=== PATIENT | male | born 1960 | race Caucasian/White ===

== ENCOUNTER → 2019-06-27 13:08 | Outpatient (CLI) | payer SELFPAY ==
--- NOTE | 2019-06-27 | DI.RAD.S_ITS ---
PROCEDURE: XR CHEST 2V INDICATIONS: CHEST PAIN TECHNIQUE: 2 views of the chest were acquired. COMPARISON: [facility], , CHEST 2 VIEW, 03/30/2010, 15:58. FINDINGS: Surgical changes and devices: None. Lungs and pleura: Lungs are clear. No pleural effusions or pneumothorax. Mediastinum: Mediastinal contours are normal. Heart size is normal. Bones and chest wall: No suspicious bony abnormalities. Soft tissues appear unremarkable. IMPRESSION: No acute disease Dictated by: Emmanuel Tyler M.D. on 06/27/2019 at 14:47 Approved by: Emmanuel Tyler M.D. on 06/27/2019 at 14:48
[2019-06-27 13:59] LABS: Add Manual Diff / Slide Review NO; Basophils Absolute Auto 100 /uL (0-100); Basophils Percent Auto 0.7 % (0-2); Eosinophils Absolute Auto 600 /uL (0-450); Eosinophils Percent Auto 4.6 % (2-4); Hematocrit 45.3 % (41-53); Hemoglobin 15.4 g/dL (13.5-17.5); Lymphocytes Absolute Auto 4200 /uL (1100-4500); Lymphocytes Percent Auto 32.9 % (25-40); Mean Corpuscular Hemoglobin 30.1 PG (26-34); Mean Corpuscular Volume 88.5 fL (80-100); Monocytes Absolute Auto 1000 /uL (0-900); Monocytes Percent Auto 7.6 % (3-14); Neutrophils Absolute Auto 7000 /uL (1500-7000); Neutrophils Percent Auto 54.2 % (50-75); Platelet Count 210 X10^3/uL (150-400); Red Blood Cell Count 5.12 X10^6/uL (4.5-5.9); Red Cell Distribution Width 13.4 % (11.6-14.8); White Blood Cell Count 12.9 X10^3/uL (4.5-11.0)
[2019-06-27 14:28] LABS: Alanine Aminotransferase 37 IU/L (21-72); Albumin 4.6 g/dL (3.5-5.0); Albumin Globulin Ratio 1.5 (1.0-2.8); Alkaline Phosphatase 120 U/L (38-126); Aspartate Aminotransferase 37 IU/L (17-59); BUN Creatinine Ratio 21.1 (6-22); Bilirubin Total 0.8 mg/dL (0.2-1.3); Blood Urea Nitrogen 19 mg/dL (9-20); Calcium 9.8 mg/dL (8.4-10.2); Carbon Dioxide 25 mmol/L (22-32); Chloride 103 mmol/L (98-107); Creatine Kinase 153 U/L (55-170); Estimated Glomerular Filt Rate > 60.0 mL/min (>60); Glucose 100 mg/dL (80-110); HEMOLYSIS < 15 (0-50); Potassium 4.3 mmol/L (3.4-5.1); Sodium 138 mmol/L (137-145); Total Protein 7.6 g/dL (6.3-8.2)
[2019-06-27 14:38] LABS: Troponin I < 0.012 ng/mL (0.01-0.034)
[2019-06-27 14:58] LABS: TSH w/ Reflex to FT4 2.47 uIU/mL (0.47-4.68)
== END ==
PROVIDERS: PCP Family Medicine; Visit Provider Family Medicine
DX: R07.89 Other chest pain (principal)
CPT/HCPCS: 36415; 71046; 80053; 82550; 84443; 84484; 85025

== ENCOUNTER 2022-10-10 22:29 | Emergency (ER) | payer SELFPAY ==
[2022-10-10 22:43] VITALS: BP 189/101; PULSE 62; RESP 16; TEMP 36.7; O2SAT 98; BMI 29.8
[2022-10-10] MEDS: SODIUM CHLORIDE 0.9% 1,000 ML 1000 ML IV (23:02)
[2022-10-10] MEDS: KETOROLAC 30 MG/ML VIAL 15 MG IV (23:02)
--- NOTE | 2022-10-10 23:15 | DI.CT.S_ITS ---
PROCEDURE: CT ABDOMEN PELVIS W CON INDICATIONS: R side pain, nausea, anorexia TECHNIQUE: After the administration of IV contrast, axial sections were acquired from the lung bases to the pubic symphysis. Coronal and sagittal reformats were performed. For radiation dose reduction, the following was used: automated exposure control, adjustment of mA and/or kV according to patient size. COMPARISON: None. FINDINGS: Image quality: Excellent. Lung bases: Unremarkable. Heart: Heart size is at the upper limits of normal. A small right pericardial cyst is noted measuring up to 4.2 x 1.8 cm. There is a small hiatal hernia. ABDOMEN: Liver: No mass lesion. Gallbladder: Within normal limits without calcified gallstones. Biliary ducts: No biliary ductal dilatation. Pancreas: Unremarkable. Spleen: Normal in size. Adrenal Glands: No adrenal nodules. Kidneys and Ureters: There is an obstructing 0.2 cm distal right ureteral stone with associated mild right hydroureteronephrosis. There is mild right perinephric and periureteral fat stranding as well as a delayed right nephrogram. There are 2 additional punctate nonobstructing right renal stones. No left hydronephrosis or discrete left renal stones. The 3 exophytic left renal cysts are demonstrated. In addition within the inferior pole of the left kidney, there is a small exophytic hyperdense cyst or renal mass measuring up to 1.4 cm on series 2, image 50. Stomach and Bowel: Stomach, small bowel loops, and colon are normal in caliber and wall thickness. The appendix is normal in appearance. Peritoneum: No abnormal intraperitoneal fluid. No free air. Ventral Wall: No hernia. Abdominal Nodes: No retroperitoneal or mesenteric adenopathy by size criteria. Vessels: Aorta and inferior vena cava are normal in size. PELVIS: Pelvic Organs: There is mild enlargement of the prostate. Bladder: The urinary bladder is partially distended. Pelvic Nodes: No enlarged lymph nodes. Miscellaneous: No inguinal hernias are seen. Bones: Visualized osseous structures demonstrate no suspicious focal lesions. IMPRESSION: 1. Obstructing distal right ureteral stone with associated mild right hydroureteronephrosis. 2. Additional punctate nonobstructing right renal stones. 3. Small exophytic left renal mass or hemorrhagic cyst. Recommend initial further evaluation with nonemergent renal ultrasound. Dictated by: Alex Martini M.D. on 10/11/2022 at 0:25 Approved by: Alex Martini M.D. on 10/11/2022 at 0:32
--- NOTE | 2022-10-10 23:15 | ED_ITS ---
HPI - Abdominal Pain General Chief Complaint: Abdominal Pain Stated Complaint: rt sided pain Time Seen by Provider: 10/10/22 22:35 Mode of arrival: Family Vehicle History of Present Illness HPI narrative: 62-year-old male nonsmoker without any significant medical history presents with a chief complaint of right flank pain that started earlier today. He states it came on rather suddenly and seems to come and go without any obvious provocation or palliation. He denies any radiation of pain. He is nauseated but denies any vomiting. He denies any fever or chills. He has some nausea but denies any vomiting. Denies dysuria, frequency or urgency. He has no change in bowel habits such as constipation or diarrhea. Related Data Previous Rx's Medication Instructions Recorded hydrocodone 5 mg-acetaminophen 325 1 tab PO Q4-6H PRN pain #10 tabs 10/11/22 mg tablet ketorolac 10 mg tablet 10 mg PO Q6H PRN pain #14 tabs 10/11/22 ondansetron 4 mg disintegrating 4 mg PO TID-QID PRN nausea and 10/11/22 tablet vomiting #10 tabs tamsulosin 0.4 mg capsule (Flomax) 0.4 mg PO DAILY #30 caps 10/11/22 Allergies Allergy/AdvReac Type Severity Reaction Status Date / Time No Known Drug Allergies Allergy Verified 10/10/22 22:45 Review of Systems Review of Systems Narrative: GENERAL: Denies chills, fatigue, malaise, fever, sweats. HEENT: Denies sinus pain, ear pain, sore throat, difficulty swallowing, dizziness. RESPIRATORY: Denies dyspnea, cough, wheezing, hemoptysis, sputum. CARDIOVASCULAR: Denies chest pain, palpitations, orthopnea, edema, GASTROINTESTINAL: See HPI : see HPI MUSCULOSKELETAL: denies weakness, joint pain, or bony pain SKIN: Denies rash, skin lesions, or other NEUROLOGIC: Denies weakness, headache, numbness, change in speech, confusion, seizures, incoordination. PSYCHIATRIC: No concerning psychosocial issues. 12 point review of systems is negative except for those stated above Patient History Social History Smoking Status: Never smoker Smoking Status: Never smoker Substance Use Type: does not use Exam Narrative Exam Narrative: GENERAL: [62] year old patient appears stated age. Well-developed patient, in mild distress. HEAD: Atraumatic. Normocephalic. EYES: Pupils equal round and reactive. Extraocular motions intact. No scleral icterus. No injection or drainage. ENT: Nose without bleeding, purulent drainage. Throat without erythema, tonsillar hypertrophy or exudate. Airway patent. NECK: Trachea midline. Non tender CARDIOVASCULAR: Regular rate and rhythm without murmurs, gallops, or rubs. RESPIRATORY: Clear to auscultation. Breath sounds equal bilaterally. No wheezes, rales, or rhonchi. GASTROINTESTINAL: Abdomen soft, non-tender, nondistended. EXTREMITIES: No edema or joint tenderness. BACK: Nontender without deformity or crepitance. No flank tenderness. NEURO: AOx3. SKIN: No rash or erythema of visible areas Initial Vital Signs Initial Vital Signs: Vital Signs Temperature 98.0 F 10/10/22 22:43 Pulse Rate 62 10/10/22 22:43 Respiratory Rate 16 10/10/22 22:43 Blood Pressure 189/101 H 10/10/22 22:43 Pulse Oximetry 98 10/10/22 22:43 Oxygen Delivery Method 10/10/22 22:43 Course Orders Ordered: ED Orders 10/10/22 22:55 Complete Blood Count AUTO DIFF Stat Comprehensive Metabolic Panel Stat Lactate (Lactic Acid) Stat Lipase Stat 10/10/22 23:15 CT abdomen pelvis w con Stat Discontinued Medications Hydrocodone Bitart/Acetaminophen (Hydrocodone/Acet 5/325 Prepack) 1 bottle MISC SEEINSTR ONE Stop: 10/11/22 01:49 Last Admin: 10/11/22 01:54 Dose: 1 bottle Documented By: NIEVES Hydromorphone HCl (Hydromorphone 0.5 Mg Inj) 0.5 mg IV NOW ONE Stop: 10/11/22 01:49 Last Admin: 10/11/22 01:54 Dose: 0.5 mg Documented By: NIEVES Sodium Chloride (Normal Saline 0.9%) 1,000 mls @ 1,000 mls/hr IV BOLUS ONE Stop: 10/10/22 23:46 Last Infusion: 10/11/22 00:35 Dose: 0 mls/hr Documented By: Admin: 10/10/22 23:02 Dose: 1,000 mls/hr Documented By: NIEVES Ketorolac Tromethamine (Ketorolac 30 Mg/Ml Vial) 15 mg IV NOW ONE Stop: 10/10/22 22:48 Last Admin: 10/10/22 23:02 Dose: 15 mg Documented By: NIEVES Ondansetron HCl (Ondansetron 4 Mg Odt Prepack) 1 bottle MISC SEEINSTR ONE Stop: 10/11/22 01:49 Last Admin: 10/11/22 01:53 Dose: 1 bottle Documented By: NIEVES Tamsulosin HCl (Tamsulosin 0.4 Mg Capsule) 0.4 mg PO NOW ONE Stop: 10/11/22 01:49 Last Admin: 10/11/22 01:59 Dose: 0.4 mg Documented By: NIEVES Reevaluation(s) Reevaluation #1: Significant improvement after Toradol Reevaluation #2: patient reports pain starting to come back, Dilaudid ordered Time: 01:58 Vital Signs Vital signs: Vital Signs - 8 hr 10/10/22 22:43 10/11/22 01:55 Temperature 98.0 F Pulse Rate 62 61 Respiratory Rate 16 20 Blood Pressure 189/101 H 173/94 H Pulse Oximetry 98 99 Oxygen Delivery Method Room Air Room Air MDM - Abdominal Pain Lab Data Result diagrams: 10/10/22 22:55 10/10/22 22:55 Labs: Lab Results 10/10/22 10/10/22 10/10/22 Range/Units 22:55 22:55 22:55 WBC 16.7 H (4.5-11.0) X10^3/uL RBC 5.32 (4.5-5.9) X10^6/uL Hgb 16.0 (13.5-17.5) g/dL Hct 48.2 (41-53) % MCV 90.6 (80-100) fL MCH 30.1 (26-34) PG MCHC 33.2 (30-36) % RDW 13.5 (11.6-14.8) % Plt Count 229 (150-400) X10^3/uL Neut % (Auto) 60.2 (50-75) % Lymph % (Auto) 28.2 (25-40) % [place] % (Auto) 7.5 (3-14) % Eos % (Auto) 3.3 (2-4) % Baso % (Auto) 0.8 (0-2) % Neut # (Auto) 62624 H (6933-5846) /uL Lymph # (Auto) 4700 H (8887-5929) /uL [place] # (Auto) 1200 H (0-900) /uL Eos # (Auto) 500 H (0-450) /uL Baso # (Auto) 100 (0-100) /uL Sodium 141 (137-145) mmol/L Potassium 4.1 (3.4-5.1) mmol/L Chloride 103 (98-107) mmol/L Carbon Dioxide 30 (22-32) mmol/L BUN 18 (9-20) mg/dL Creatinine 1.25 (0.66-1.25) mg/dL Estimated GFR > 60 (>60) mL/min BUN/Creatinine Ratio 14.4 (6-22) Glucose 106 (80-110) mg/dL Lactate 1.1 (0.7-2.1) mmol/L Calcium 9.3 (8.4-10.2) mg/dL Total Bilirubin 1.0 (0.2-1.3) mg/dL AST 31 (17-59) IU/L ALT 32 (<50) IU/L Alkaline Phosphatase 97 (38-126) U/L Total Protein 8.2 (6.3-8.2) g/dL Albumin 4.7 (3.5-5.0) g/dL Globulin 3.5 (1.7-4.1) g/dL Albumin/Globulin Ratio 1.3 (1.0-2.8) Lipase 140 (23-300) U/L Point of care testing: Urine Dip Bedside Urine Glucose Negative Bedside Urine Bilirubin - Negative Bedside Urine Ketone - Negative Urine Specific [place] 1.030 Bedside Urine Occult Blood - Negative Bedside Urine pH 6.0 Bedside Urine Protein - Negative Bedside Urine Urobilinogen - Negative Bedside Urine Nitrite - Negative Bedside Urine Leukocytes - Negative Esterase Imaging Data CT scan - abdomen/pelvis: Radiologist's Impression: [address] [address] [address] Scan Report Signed Patient: Wing Irvin MR#: [id number] : 1960 Acct:[id number] Age/Sex: 62 / M Date of Service: 10/10/22 Loc: ED Accession Number: [id number] ?? Procedure: CT abdomen pelvis w con Ordering Provider: Srinivas Zaman D.O. PROCEDURE:? CT ABDOMEN PELVIS W CON ? INDICATIONS:? R side pain, nausea, anorexia ? TECHNIQUE:? After the administration of IV contrast, axial sections were acquired from the lung bases to the pubic symphysis.? Coronal and sagittal reformats were performed.? For radiation dose reduction, the following was used:? automated exposure control, adjustment of mA and/or kV according to patient size. ? COMPARISON:? None. ? FINDINGS:? Image quality:? Excellent.? ? Lung bases:? Unremarkable.? ? Heart:? Heart size is at the upper limits of normal.? A small right pericardial cyst is noted measuring up to 4.2 x 1.8 cm.? There is a small hiatal hernia. ? ? ABDOMEN: Liver:? No mass lesion. Gallbladder:? Within normal limits without calcified gallstones.? ? Biliary ducts:? No biliary ductal dilatation.? ? Pancreas:? Unremarkable.? ? Spleen:? Normal in size.? ? Adrenal Glands:? No adrenal nodules.? ? Kidneys and Ureters:? There is an obstructing 0.2 cm distal right ureteral stone with associated mild right hydroureteronephrosis.? There is mild right perinephric and periureteral fat stranding as well as a delayed right nephrogram.? There are 2 additional punctate nonobstructing right renal stones.? No left hydronephrosis or discrete left renal stones.? The 3 exophytic left renal cysts are demonstrated.? In addition within the inferior pole of the left kidney, there is a small exophytic hyperdense cyst or renal mass measuring up to 1.4 cm on series 2, image 50. ? Stomach and Bowel:? Stomach, small bowel loops, and colon are normal in caliber and wall thickness.? The appendix is normal in appearance.? Peritoneum:? No abnormal intraperitoneal fluid.? No free air.? ? Ventral Wall: ? No hernia.? Abdominal Nodes:? No retroperitoneal or mesenteric adenopathy by size criteria.? Vessels:? Aorta and inferior vena cava are normal in size.? ? PELVIS: Pelvic Organs:? There is mild enlargement of the prostate.? ? Bladder:? The urinary bladder is partially distended.? ? Pelvic Nodes: No enlarged lymph nodes.? Miscellaneous: No inguinal hernias are seen. ? ? ? Bones:? Visualized osseous structures demonstrate no suspicious focal lesions. ? IMPRESSION:? ? 1. Obstructing distal right ureteral stone with associated mild right hydroureteronephrosis. ? 2. Additional punctate nonobstructing right renal stones. ? 3. Small exophytic left renal mass or hemorrhagic cyst.? Recommend initial further evaluation with nonemergent renal ultrasound.? ? ? Dictated by: Alex Martini M.D. on 10/11/2022 at 0:25 ? ? Approved by: Alex Martini M.D. on 10/11/2022 at 0:32 ? MDM Narrative Medical decision making narrative: CC: 62M presents with R flank pain Complicating co-morbidities: Age > 60 Data collected from: Patient and Medical records reviewed: No other charts in EMR Differential considered, but not limited to: Kidney stones, pyelonephritis, bowel obstruction, gallbladder disease, pancreatitis versus other Exam documented above, pertinent findings include: obviously uncomfortable, no reproducible abdominal, pelvic or back pain Lab Test results independently reviewed as above. Pertinent findings: patient does have elevated white blood cell count, no report of fever, likely due to stress response rather than underlying infection. Urine demonstrates no signs of infection, blood only. Though electrolyte abnormality or decreased renal function Imaging studies independently reviewed: CT demonstrates 2 mm obstructing stone with associated hydronephrosis, incidental finding notes a small 1.4cm left kidney mass, radiology recommends follow up with outpatient Renal US Treatments: Fluids, Toradol, Dilaudid and flomax Re-evaluations: patient has significant improvement in symptoms, pain well controlled, no vomiting Discussion: patient with severe, colicky type right flank pain without provocation or palliation. Urine demonstrates blood and no signs of infection, patient as kidney stone noted on imaging with associated hydronephrosis. No evidence of infection, or kidney injury. Disposition: see below, along with detailed discharge instructions that have been reviewed with patient as well as indications for ED re-evaluation and additional outpatient follow up Discharge Plan Departure Patient Disposition: Home Clinical Impression: Kidney stone on right side, Left kidney mass Instructions: DI for Kidney Stones Activity Restrictions/Additional Instructions: *You have been diagnosed with [ right-sided 2 mm kidney stone with associated hydronephrosis, incidental finding of small left kidney mass (Dr. Oakes can help arrange for an outpatient renal ultrasound to futher evaluate)] *What to do: *Please continue to take your regular medications as directed. [x ] New medication prescriptions sent to your pharmacy: [ [facility]] [ ] New medication written as a paper prescription [ ] No new medications given *Please follow up with your primary care provider in 2-3 days, call for an appointment. Let them know you were seen in the Emergency Department and that we ask that you be seen in follow up. We will electronically transmit a record of today's note. As we discussed, I have included contact information for our local urology clinic (Dr. Suazo and Dr. Sanchez) should you chose to want to follow up with them as well *Return to Emergency Department if you should have any new, worsening or concerning symptoms, such as [fever greater than 101 F, shaking chills, worsening pain, persistent vomiting or other bothersome symptoms] Prescriptions: New ketorolac 10 mg tablet 10 mg PO Q6H PRN (Reason: pain) Qty: 14 0RF tamsulosin [Flomax] 0.4 mg capsule 0.4 mg PO DAILY Qty: 30 0RF ondansetron 4 mg tablet,disintegrating 4 mg PO TID-QID PRN (Reason: nausea and vomiting) Qty: 10 0RF hydrocodone-acetaminophen 5-325 mg tablet 1 tab PO Q4-6H PRN (Reason: pain) Qty: 10 0RF Referrals: Micheal Sanchez MD [Physician] - Chris Oakes MD [Primary Care Provider] - Stand Alone Forms: Patient Portal/API
[2022-10-10 23:19] LABS: Alanine Aminotransferase 32 IU/L (<50); Albumin 4.7 g/dL (3.5-5.0); Albumin Globulin Ratio 1.3 (1.0-2.8); Alkaline Phosphatase 97 U/L (38-126); Aspartate Aminotransferase 31 IU/L (17-59); BUN Creatinine Ratio 14.4 (6-22); Blood Urea Nitrogen 18 mg/dL (9-20); Calcium 9.3 mg/dL (8.4-10.2); Carbon Dioxide 30 mmol/L (22-32); Chloride 103 mmol/L (98-107); Estimated Glomerular Filt Rate > 60 mL/min (>60); Globulin 3.5 g/dL (1.7-4.1); Glucose 106 mg/dL (80-110); HEMOLYSIS < 15 (0-50); Lipase 140 U/L (23-300); Potassium 4.1 mmol/L (3.4-5.1); Sodium 141 mmol/L (137-145); Total Protein 8.2 g/dL (6.3-8.2)
[2022-10-10 23:20] LABS: Lactate (Lactic Acid) 1.1 mmol/L (0.7-2.1)
[2022-10-10 23:23] LABS: Add Manual Diff / Slide Review NO; Basophils Absolute Auto 100 /uL (0-100); Basophils Percent Auto 0.8 % (0-2); Eosinophils Absolute Auto 500 /uL (0-450); Eosinophils Percent Auto 3.3 % (2-4); Hematocrit 48.2 % (41-53); Lymphocytes Absolute Auto 4700 /uL (1100-4500); Lymphocytes Percent Auto 28.2 % (25-40); Mean Corpuscular HGB Conc 33.2 % (30-36); Mean Corpuscular Hemoglobin 30.1 PG (26-34); Mean Corpuscular Volume 90.6 fL (80-100); Monocytes Absolute Auto 1200 /uL (0-900); Monocytes Percent Auto 7.5 % (3-14); Neutrophils Absolute Auto 10100 /uL (1500-7000); Neutrophils Percent Auto 60.2 % (50-75); Platelet Count 229 X10^3/uL (150-400); Red Blood Cell Count 5.32 X10^6/uL (4.5-5.9); Red Cell Distribution Width 13.5 % (11.6-14.8); White Blood Cell Count 16.7 X10^3/uL (4.5-11.0)
[2022-10-11] MEDS: ONDANSETRON 4 MG ODT PREPACK 1 BOTTLE MISC (01:53)
[2022-10-11] MEDS: HYDROCODONE/ACET 5/325 PREPACK 1 BOTTLE MISC (01:54)
[2022-10-11] MEDS: HYDROMORPHONE 0.5 MG INJ IV (01:54)
[2022-10-11 01:55] VITALS: BP 173/94; PULSE 61; RESP 20; O2SAT 99
[2022-10-11] MEDS: TAMSULOSIN 0.4 MG CAPSULE PO (01:59)
== END 2022-10-11 02:29 | disposition home or self-care (01) ==
PROVIDERS: Emergency Provider Emergency Medicine; PCP Family Medicine
DX: N20.0 Calculus of kidney (principal); N28.89 Other specified disorders of kidney and ureter; R11.0 Nausea
CPT/HCPCS: 36415; 74177; 80053; 81003; 83605; 83690; 85025; 96361; 96374; 96375; 99284; J1170; J1885; Q9967

== ENCOUNTER 2024-07-16 10:40 | Emergency (ER) | payer SELFPAY ==
[2024-07-16] VITALS (9 sets, daily range): BP systolic 125–150; BP diastolic 73–80; PULSE 56–68; RESP 16–24; TEMP 36.6; O2SAT 94–97; BMI 31.8
--- NOTE | 2024-07-16 10:41 | ED_ITS ---
HPI - Chest Pain General Chief Complaint: Chest Pain Stated Complaint: sent by dr Oakes, abnormal EKG/chest pain Time Seen by Provider: 07/16/24 10:41 History of Present Illness HPI narrative: Patient is a 64-year-old male with comes into the ED from his primary care doctor for chest pain. He has a history of hyperlipidemia, hypertension. States that the pain started approximately a day today and half ago, states it is sharp and shooting nothing making it better or worse. Not pleuritic in nature. Patient was given aspirin and nitro prior to arrival by his primary care doctor before being sent here. He states that the symptoms did not improve with this, he states that the pain really only gets worse whenever moves or whenever it is being pressed on. He has not complaining of any headache visual disturbances shortness of breath or any other symptoms at this time. Related Data Previous Rx's Medication Instructions Recorded hydrocodone 5 mg-acetaminophen 325 1 tab PO Q4-6H PRN pain #10 tabs 10/11/22 mg tablet ketorolac 10 mg tablet 10 mg PO Q6H PRN pain #14 tabs 10/11/22 ondansetron 4 mg disintegrating 4 mg PO TID-QID PRN nausea and 10/11/22 tablet vomiting #10 tabs tamsulosin 0.4 mg capsule (Flomax) 0.4 mg PO DAILY #30 caps 10/11/22 Allergies Allergy/AdvReac Type Severity Reaction Status Date / Time No Known Drug Allergies Allergy Verified 10/10/22 22:45 Review of Systems Review of Systems Narrative: General: Denies fever, chills, weight loss HEENT: Denies headache, eye drainage, eye irritation, head trauma, sore throat, voice change Cardiovascular: Positive chest pain, denies palpitations, shortness of breath, tachycardia Respiratory: Denies any shortness of breath, cough, wheeze, stridor GI/: Denies any abdominal pain, nausea, vomiting, diarrhea, bright red blood per rectum, melanotic stools, urinary frequency, urinary retention, dysuria, hematuria MSK: Denies any joint pain, muscle pains, swelling Skin: Denies any rashes, lesions, discoloration Neuro: Denies any headache, lightheadedness, dizziness, fainting, weakness Psych: Denies SI/HI Patient History Social History Smoking Status: Never smoker Smoking Status: Never smoker Substance Use Type: does not use Exam Narrative Exam Narrative: General: Cooperative, comfortable, well-developed, not in acute distress HEENT: Normocephalic, atraumatic, PERRLA, normal sclera, eyelids normal, Neck: Active full range of motion, atraumatic Chest: Normal to inspection, negative crepitus, no overlying erythema ecchymosis, reproducible chest pain on palpation of the left Respiratory: Normal respiratory effort, not in acute respiratory distress, clear to auscultation bilaterally negative cough, wheeze, tachypnea, rhonchi, rales Cardiology: Regular rate rhythm negative gallop, murmur, rubs GI/: Normal to inspection, soft, nonrigid, no tenderness to palpation, exam deferred MSK: Full range of active range of motion of all 4 extremities, atraumatic Skin: No rashes lesions noted Neuro: Alert awake oriented x3, moves all 4 extremities spontaneously, cranial nerves intact, able to answer all questions appropriately follows commands appropriately Psych: Cooperative, negative suicidal or homicidal ideations Initial Vital Signs Initial Vital Signs: Vital Signs Pulse Oximetry 97 07/16/24 10:44 Scores HEART Score Heart Score history: Slightly Suspicious Heart Score EKG: Normal Heart Score Age: > or = 65 years old Heart Score risk factors: 1-2 risk factors Heart Score troponin: < or = to normal limit Heart Score Total: 3 Course Orders Ordered: ED Orders 07/16/24 10:41 XR chest 1V Stat EKG-12 Lead Stat 07/16/24 11:00 Complete Blood Count AUTO DIFF Stat Comprehensive Metabolic Panel Stat Lipase Stat NT-proBNP (BNP-Adult 18+) Stat Troponin & CK Cardiac Panel Stat 07/16/24 11:05 Covid-19 + FLU A/B + RSV - PCR Stat 07/16/24 12:55 Trop I [Troponin I] Stat Vital Signs Vital signs: Vital Signs - 8 hr 07/16/24 10:44 07/16/24 10:45 07/16/24 10:45 Temperature Pulse Rate 60 Respiratory Rate Blood Pressure 143/79 H Pulse Oximetry 97 96 Oxygen Delivery Method 07/16/24 10:47 07/16/24 11:00 07/16/24 11:00 Temperature 98 F Pulse Rate 68 60 Respiratory Rate 18 Blood Pressure 143/79 H 127/73 Pulse Oximetry 97 96 Oxygen Delivery Method Room Air 07/16/24 11:30 07/16/24 11:30 07/16/24 12:00 Temperature Pulse Rate 57 L Respiratory Rate 24 Blood Pressure 125/73 131/80 Pulse Oximetry 95 Oxygen Delivery Method 07/16/24 12:00 07/16/24 12:30 07/16/24 12:30 Temperature Pulse Rate 56 L 59 L Respiratory Rate 24 18 Blood Pressure 140/80 Pulse Oximetry 96 96 Oxygen Delivery Method MDM - Chest Pain Differential Diagnosis Differential diagnosis: Likely atypical chest pain, st elevation myocardial infarction, costochondritis, chest pain and other (covid, flu) Lab Data 07/16/24 11:00 07/16/24 11:00 Labs: Lab Results 07/16/24 07/16/24 07/16/24 Range/Units 11:00 11:05 12:55 WBC 11.6 H (4.5-11.0) X10^3/uL RBC 4.83 (4.5-5.9) X10^6/uL Hgb 15.1 (13.5-17.5) g/dL Hct 44.0 (41-53) % MCV 91.1 (80-100) fL MCH 31.2 (26-34) PG MCHC 34.2 (30-36) % RDW 13.7 (11.6-14.8) % Plt Count 176 (150-400) X10^3/uL Neut % (Auto) 54.4 (50-75) % Lymph % (Auto) 33.1 (25-40) % [place] % (Auto) 6.7 (3-14) % Eos % (Auto) 5.3 H (2-4) % Baso % (Auto) 0.5 (0-2) % Neut # (Auto) 6300 (8748-1202) /uL Lymph # (Auto) 3800 (6534-1932) /uL [place] # (Auto) 800 (0-900) /uL Eos # (Auto) 600 H (0-450) /uL Baso # (Auto) 100 (0-100) /uL Sodium 138 (137-145) mmol/L Potassium 4.9 (3.4-5.1) mmol/L Chloride 105 (98-107) mmol/L Carbon Dioxide 26 (22-32) mmol/L BUN 19 (9-20) mg/dL Creatinine 0.93 (0.66-1.25) mg/dL Estimated GFR > 60 (>60) mL/min BUN/Creatinine Ratio 20.4 (6-22) Glucose 113 H (80-110) mg/dL Calcium 9.1 (8.4-10.2) mg/dL Total Bilirubin 0.9 (0.2-1.3) mg/dL AST 36 (17-59) IU/L ALT 28 (<50) IU/L Alkaline Phosphatase 84 (38-126) U/L Total Creatine Kinase 119 (55-170) U/L Troponin I < 0.012 < 0.012 (0.01-0.034) ng/mL NT-Pro-B Natriuret Pep 40 (<125) pg/mL Total Protein 6.9 (6.3-8.2) g/dL Albumin 4.3 (3.5-5.0) g/dL Globulin 2.6 (1.7-4.1) g/dL Albumin/Globulin Ratio 1.7 (1.0-2.8) Lipase 240 (23-300) U/L SARS-CoV-2 (PCR) Negative (Negative) Influenza A (RT-PCR) Flu a negative (NEGATIVE) Influenza B (RT-PCR) Flu b negative (NEGATIVE) RSV (PCR) Negative (Negative) Imaging Data Chest x-ray: Radiologist's Impression: [address] [address] XRay Report Signed Patient: Wing Irvin MR#: [id number] : 1960 Acct:[id number] Age/Sex: 64 / M Date of Service: 07/16/24 Loc: ED Accession Number: [id number] Procedure: XR chest 1V Ordering Provider: Benjie Rg D.O. PROCEDURE: XR CHEST 1V INDICATIONS: chest pain TECHNIQUE: One view of the chest was acquired. COMPARISON: [facility], CR, XR CHEST 2V, 06/27/2019, 13:42. FINDINGS: Surgical changes and devices: None. Lungs and pleura: Mild pulmonary vascular congestion is seen. No definite focal infiltrate. No pleural effusions or pneumothorax. Mediastinum: Mediastinal contours appear normal. Heart size is enlarged. Bones and chest wall: No suspicious bony lesions. Overlying soft tissues appear unremarkable. IMPRESSION: Cardiomegaly and mild congestion. No definite focal infiltrate. No pleural effusion or pneumothorax. ECG Data Attestation: I personally reviewed and interpreted this ECG as follows: Interpretation: EKG interpreted ED physician sinus bradycardia at [address] changes no STEMI MDM Narrative Medical decision making narrative: Patient is a 74-year-old male hyper lipidemia hypertension past medical history presents for chest pain ongoing for about 2 days. Patient's chest x-ray without any signs of acute findings, patient without EKG ischemic changes. Heart score of 3. Troponin negative x2. Patient is chest pain reproducible on palpation and movement more likely costochondritis, patient will be sent home with outpatient follow up with PCP and Cardiology he was given strict return precautions safe for discharge home with outpatient follow up Discharge Plan Departure Patient Disposition: Home Clinical Impression: Chest pain Activity Restrictions/Additional Instructions: Please follow up with Cardiology Please read the discharge instructions sheet carefully and bring all papers to all doctor follow-up visits, as it may contain information that your doctor may want to see. Disease processes change and evolve, if your symptoms worsen or if you develop any new symptoms that are concerning to you please return for evaluation. Your evaluation today does not show any evidence of any life- threatening/serious illnesses requiring admission to the hospital or surgery. Please follow-up with your doctor for re-evaluation in approximately 1 day. Seek immediate medical attention for any worrisome symptoms. Prescriptions: No Action ketorolac 10 mg tablet 10 mg PO Q6H PRN (Reason: pain) Qty: 14 0RF tamsulosin [Flomax] 0.4 mg capsule 0.4 mg PO DAILY Qty: 30 0RF ondansetron 4 mg tablet,disintegrating 4 mg PO TID-QID PRN (Reason: nausea and vomiting) Qty: 10 0RF hydrocodone-acetaminophen 5-325 mg tablet 1 tab PO Q4-6H PRN (Reason: pain) Qty: 10 0RF Referrals: Kirby Toscano MD [Physician] - Chris Oakes MD [Primary Care Provider] - Stand Alone Forms: Patient Portal/API
--- NOTE | 2024-07-16 10:41 | EKG_ITS ---
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
[2024-07-16 11:13] LABS: Add Manual Diff / Slide Review NO; Basophils Absolute Auto 100 /uL (0-100); Basophils Percent Auto 0.5 % (0-2); Eosinophils Absolute Auto 600 /uL (0-450); Eosinophils Percent Auto 5.3 % (2-4); Hemoglobin 15.1 g/dL (13.5-17.5); Lymphocytes Absolute Auto 3800 /uL (1100-4500); Lymphocytes Percent Auto 33.1 % (25-40); Mean Corpuscular HGB Conc 34.2 % (30-36); Mean Corpuscular Hemoglobin 31.2 PG (26-34); Mean Corpuscular Volume 91.1 fL (80-100); Monocytes Absolute Auto 800 /uL (0-900); Monocytes Percent Auto 6.7 % (3-14); Neutrophils Absolute Auto 6300 /uL (1500-7000); Neutrophils Percent Auto 54.4 % (50-75); Platelet Count 176 X10^3/uL (150-400); Red Blood Cell Count 4.83 X10^6/uL (4.5-5.9); Red Cell Distribution Width 13.7 % (11.6-14.8); White Blood Cell Count 11.6 X10^3/uL (4.5-11.0)
[2024-07-16 11:28] LABS: Alanine Aminotransferase 28 IU/L (<50); Albumin 4.3 g/dL (3.5-5.0); Albumin Globulin Ratio 1.7 (1.0-2.8); Alkaline Phosphatase 84 U/L (38-126); Aspartate Aminotransferase 36 IU/L (17-59); BUN Creatinine Ratio 20.4 (6-22); Bilirubin Total 0.9 mg/dL (0.2-1.3); Blood Urea Nitrogen 19 mg/dL (9-20); Calcium 9.1 mg/dL (8.4-10.2); Carbon Dioxide 26 mmol/L (22-32); Chloride 105 mmol/L (98-107); Creatine Kinase 119 U/L (55-170); Estimated Glomerular Filt Rate > 60 mL/min (>60); Globulin 2.6 g/dL (1.7-4.1); Glucose 113 mg/dL (80-110); Lipase 240 U/L (23-300); Potassium 4.9 mmol/L (3.4-5.1); Sodium 138 mmol/L (137-145); Total Protein 6.9 g/dL (6.3-8.2)
[2024-07-16 11:29] LABS: HEMOLYSIS 78 (0-50)
[2024-07-16 11:37] LABS: NT-proBNP (BNP-Adult 18+) 40 pg/mL (<125)
[2024-07-16 11:39] LABS: Troponin I < 0.012 ng/mL (0.01-0.034)
[2024-07-16 11:48] LABS: Influenza A - CEPHEID Flu A NEGATIVE (NEGATIVE); Influenza B - CEPHEID Flu B NEGATIVE (NEGATIVE); Respiratory Syncytial Virus Negative (Negative)
[2024-07-16 11:50] LABS: COVID-19 CEPHEID 4-PLEX PCR Negative (Negative)
[2024-07-16 13:26] LABS: Troponin I < 0.012 ng/mL (0.01-0.034)
== END 2024-07-16 13:45 | disposition home or self-care (01) ==
PROVIDERS: Emergency Provider Student in an Organized Health Care Education/Training Program; PCP Family Medicine
DX: R07.9 Chest pain, unspecified (principal); R00.1 Bradycardia, unspecified; E78.5 Hyperlipidemia, unspecified; I10 Essential (primary) hypertension; Z11.52 Encounter for screening for COVID-19; I51.7 Cardiomegaly
CPT/HCPCS: 0241U; 36415; 71045; 80053; 82550; 83690; 83880; 84484; 85025; 93005; 99284

== ENCOUNTER → 2025-07-21 11:19 | Outpatient (CLI) | payer MEDICARE, SELFPAY ==
--- NOTE | 2025-07-21 | DI.RAD.S_ITS ---
PROCEDURE: XR KNEE STANDING BI INDICATIONS: knee pain TECHNIQUE: 1 view of both knees. COMPARISON: [facility], CR, XR KNEE LT 1TO2V, 07/21/2025, 11:28. FINDINGS: Bones: Moderate left and mild right medial femorotibial compartment narrowing. Lateral compartment joint spaces are maintained. Patellofemoral compartments are not well evaluated on this single image. No acute fractures or dislocations. No suspicious bony lesions. Soft tissues: Early chondrocalcinosis of the left knee. IMPRESSION: Moderate left and mild right medial joint space narrowing. Dictated by: Simona CASTRO Interpreted: Constantine Shannon MD on 07/21/2025 at 12:54 Transcribed by: JASON on 07/21/2025 at 12:55 Approved by: Constantine Shannon M.D. on 07/21/2025 at 20:59
--- NOTE | 2025-07-21 11:22 | DI.RAD.S_ITS ---
PROCEDURE: XR KNEE LT 1TO2V INDICATIONS: KNEE PAIN TECHNIQUE: 2 views of the knee were acquired. COMPARISON: [facility], CR, XR KNEE STANDING BI, 07/21/2025, 11:28. FINDINGS: Bones: No acute fractures or dislocations. No suspicious bony lesions. Joint space narrowing at the medial femorotibial compartment is not as well visualized on lateral view. Patellofemoral compartment joint space is maintained. Soft tissues: Small left knee effusion. No suspicious soft tissue calcifications. IMPRESSION: Small left knee effusion. Dictated by: Simona CASTRO Interpreted: Constantine Shannon MD on 07/21/2025 at 12:56 Transcribed by: JASON on 07/21/2025 at 12:56 Approved by: Constantine Shannon M.D. on 07/21/2025 at 21:01
== END ==
LOC: RAD 11:21
PROVIDERS: PCP Family Medicine; Referring Provider Family Medicine; Visit Provider Family Medicine
DX: M11.262 Other chondrocalcinosis, left knee (principal); M25.461 Effusion, right knee; G89.29 Other chronic pain; M25.562 Pain in left knee
CPT/HCPCS: 73560; 73565